=== PATIENT | female | born 1995 ===

== ENCOUNTER 2019-05-26 22:09 | Emergency (ER) | payer OTHER ==
[2019-05-27] MEDS ORDERED: IBUPROFEN 600 MG TAB PO ONE (01:07)
--- NOTE | 2019-05-27 01:07 | Emergency Department Report ---
Abscess Boil HPI - HPI Chief Complaint: Skin/Abscess/Foreign Body Stated Complaint: ABSCESS UNDER LEFT ARM Time Seen by Provider: 05/27/19 01:07 Duration: Today Location: Upper Extremity History: Yes Pain, Yes Previous History, No Purulent Drainage, No Numbness, No Foreign Body, No Insect Bite HPI: 23-year-old female presents to the emergency room for abscess under left arm x1 day. Patient states that she suffers from these abscesses usually under her arms groin and sometimes under her breasts. Patient has taken nothing for pain. Patient states that usually when the pain gets this bad and they usually burst. Denies any fever chills no nausea no vomiting. Home Medications: Previous Rx's Medication Instructions Recorded Last Taken Type Ibuprofen [Motrin 600 MG tab] 600 mg PO Q8H PRN #30 tablet 05/27/19 Unknown Rx cephALEXin [Keflex] 500 mg PO Q8HR 10 Days #30 cap 05/27/19 Unknown Rx Allergies/Adverse Reactions: Allergies Allergy/AdvReac Type Severity Reaction Status Date / Time No Known Allergies Allergy Unverified 05/26/19 23:04 ED Review of Systems ROS: Stated complaint: ABSCESS UNDER LEFT ARM Other details as noted in HPI ED Past Medical Hx - Past Medical History Previous Medical History?: No - Surgical History Past Surgical History?: Yes Additional Surgical History: D&C - Social History Smoking Status: Never Smoker Substance Use Type: Alcohol - Medications Home Medications: Home Medications Medication Instructions Recorded Confirmed Last Taken Type Ibuprofen [Motrin 600 MG tab] 600 mg PO Q8H PRN #30 tablet 05/27/19 Unknown Rx cephALEXin [Keflex] 500 mg PO Q8HR 10 Days #30 cap 05/27/19 Unknown Rx ED Abscess Boil Physical Exam - Exam General: Vital signs noted. No distress. Alert and acting appropriately. ED Course Vital Signs 05/26/19 22:36 Temperature 99.3 F Pulse Rate 106 H Respiratory 20 Rate Blood Pressure 118/75 O2 Sat by Pulse 99 Oximetry Critical care attestation.: If time is entered above; I have spent that time in minutes in the direct care of this critically ill patient, excluding procedure time. ED Medical Decision Making - Medical Decision Making 23-year-old female presents to the emergency room for abscess under left arm x1 day. Patient states that she suffers from these abscesses usually under her arms groin and sometimes under her breasts. Patient has taken nothing for pain. Patient states that usually when the pain gets this bad and they usually burst. Denies any fever chills no nausea no vomiting. Please complete antibiotics as prescribed. Take [id number] ibuprofen for pain management. Follow-up with a admissions assistant. ED Disposition Clinical Impression: Abscess of axilla, left Disposition: DC-01 TO HOME OR SELFCARE Is pt being admited?: No Does the pt Need Aspirin: No Condition: Stable Instructions: Abscess (ED) Additional Instructions: Please complete antibiotics as prescribed. Take [id number] ibuprofen for pain management. Follow-up with a admissions assistant. Prescriptions: cephALEXin [Keflex] 500 mg PO Q8HR 10 Days #30 cap Ibuprofen [Motrin 600 MG tab] 600 mg PO Q8H PRN #30 tablet PRN Reason: Pain , Severe (7-10) Referrals: LETY CAMARILLO MD [Staff Physician] - 3-5 Days
[2019-05-27 02:19] VITALS: BP 126/78
== END 2019-05-27 01:35 | disposition home or self-care (01) ==
LOC: ED 22:09
DX: L02.412 Cutaneous abscess of left axilla (principal)
CPT/HCPCS: 99282

== ENCOUNTER 2020-02-28 16:40 | Emergency (ER) | payer OTHER ==
[2020-02-28 16:59] VITALS: BP 117/78
--- NOTE | 2020-02-28 17:03 | Emergency Department Report ---
ED HPI - General Chief complaint: Vaginal Bleeding Stated complaint: POSSIBLE MISCARRIAGE Time Seen by Provider: 02/28/20 16:56 Source: patient Mode of arrival: Ambulatory Limitations: No Limitations - History of Present Illness Initial comments: 24-year-old female patient presents with complaints of lower abdominal pain and mild bleeding x yesterday. Patient states she is approximately 7 weeks and was sent here by her [employer]OYEE [employer]IST to rule out an ectopic or miscarriage. She denies any urinary symptoms, vaginal discharge/dyspareunia, nausea/vomiting/diarrhea, or fever/chills/sweats. She is A1. - Related Data Previous Rx's Medication Instructions Recorded Last Taken Type Ibuprofen [Motrin 600 MG tab] 600 mg PO Q8H PRN #30 tablet 05/27/19 Unknown Rx cephALEXin [Keflex] 500 mg PO Q8HR 10 Days #30 cap 05/27/19 Unknown Rx Amoxicillin/Potassium Clav 1 each PO BID 5 Days #10 tablet 02/28/20 Unknown Rx [Augmentin 875-125 Tablet] Allergies Allergy/AdvReac Type Severity Reaction Status Date / Time No Known Allergies Allergy Unverified 05/26/19 23:04 ED Review of Systems ROS: Stated complaint: POSSIBLE MISCARRIAGE Other details as noted in HPI Constitutional: denies: chills, diaphoresis, fever, malaise, weakness Respiratory: denies: cough Cardiovascular: denies: chest pain Gastrointestinal: abdominal pain. denies: nausea, vomiting, diarrhea Genitourinary: denies: urgency, dysuria, frequency, hematuria Musculoskeletal: denies: back pain Skin: denies: rash Neurological: denies: numbness, paresthesias Hematological/Lymphatic: denies: swollen glands ED Past Medical Hx - Past Medical History Previous Medical History?: No - Surgical History Past Surgical History?: Yes Additional Surgical History: D&C - Social History Smoking Status: Never Smoker Substance Use Type: Alcohol - Medications Home Medications: Home Medications Medication Instructions Recorded Confirmed Last Taken Type Ibuprofen [Motrin 600 MG tab] 600 mg PO Q8H PRN #30 tablet 05/27/19 Unknown Rx cephALEXin [Keflex] 500 mg PO Q8HR 10 Days #30 cap 05/27/19 Unknown Rx Amoxicillin/Potassium Clav 1 each PO BID 5 Days #10 tablet 02/28/20 Unknown Rx [Augmentin 875-125 Tablet] ED Physical Exam - General Limitations: No Limitations General appearance: alert, in no apparent distress - Head Head exam: Present: atraumatic, normocephalic - Eye Eye exam: Present: normal appearance. Absent: scleral icterus - Respiratory Respiratory exam: Present: normal lung sounds bilaterally. Absent: respiratory distress - Cardiovascular Cardiovascular Exam: Present: regular rate, normal rhythm - GI/Abdominal GI/Abdominal exam: Present: soft, normal bowel sounds. Absent: distended, tenderness, guarding, rebound, rigid - Extremities Exam Extremities exam: Present: full ROM - Neurological Exam Neurological exam: Present: alert, oriented X3, normal gait - Psychiatric Psychiatric exam: Present: normal affect, normal mood - Skin Skin exam: Present: warm, dry, intact, normal color. Absent: rash ED Course Vital Signs 02/28/20 16:58 Temperature 99.2 F Pulse Rate 103 H Respiratory 18 Rate Blood Pressure 117/78 [Right] O2 Sat by Pulse 99 Oximetry ED Medical Decision Making - Lab Data Result diagrams: 02/28/20 17:04 02/28/20 17:04 Lab Results 02/28/20 02/28/20 02/28/20 Range/Units 17:04 17:04 17:04 WBC 10.5 (4.5-11.0) K/mm3 RBC 4.85 (3.65-5.03) M/mm3 Hgb 11.9 (10.1-14.3) gm/dl Hct 37.1 (30.3-42.9) % MCV 77 L (79-97) fl MCH 25 L (28-32) pg MCHC 32 (30-34) % RDW 16.0 H (13.2-15.2) % Plt Count 297 (140-440) K/mm3 Lymph % (Auto) 32.5 (13.4-35.0) % [place] % (Auto) 5.1 (0.0-7.3) % Eos % (Auto) 0.4 (0.0-4.3) % Baso % (Auto) 0.2 (0.0-1.8) % Lymph # (Auto) 3.4 (1.2-5.4) K/mm3 [place] # (Auto) 0.5 (0.0-0.8) K/mm3 Eos # (Auto) 0.0 (0.0-0.4) K/mm3 Baso # (Auto) 0.0 (0.0-0.1) K/mm3 Seg Neutrophils % 61.8 (40.0-70.0) % Seg Neutrophils # 6.5 (1.8-7.7) K/mm3 Sodium 135 L (137-145) mmol/L Potassium 3.6 (3.6-5.0) mmol/L Chloride 99.8 (98-107) mmol/L Carbon Dioxide 24 (22-30) mmol/L Anion Gap 15 mmol/L BUN 7 (7-17) mg/dL Creatinine 0.6 (0.6-1.2) mg/dL Estimated GFR > 60 ml/min BUN/Creatinine Ratio 12 % Glucose 97 (65-100) mg/dL Calcium 9.1 (8.4-10.2) mg/dL Total Bilirubin 0.20 (0.1-1.2) mg/dL AST 12 (5-40) units/L ALT 10 (7-56) units/L Alkaline Phosphatase 83 (35-129) units/L Total Protein 8.6 H (6.3-8.2) g/dL Albumin 3.9 (3.9-5) g/dL Albumin/Globulin Ratio 0.8 % HCG, Quant 2626 H (0-4) mIU/mL Urine Color (Yellow) Urine Turbidity (Clear) Urine pH (5.0-7.0) Ur Specific [place] (1.003-1.030) Urine Protein (Negative) mg/dL Urine Glucose (UA) (Negative) mg/dL Urine Ketones (Negative) mg/dL Urine Blood (Negative) Urine Nitrite (Negative) Urine Bilirubin (Negative) Urine Urobilinogen (<2.0) mg/dL Ur Leukocyte Esterase (Negative) Urine WBC (Auto) (0.0-6.0) /HPF Urine RBC (Auto) (0.0-6.0) /HPF U Epithel Cells (Auto) (0-13.0) /HPF Urine Bacteria (Auto) (Negative) /HPF Urine Mucus /HPF Urine Yeast (Budding) /HPF Blood Type 02/28/20 02/28/20 Range/Units 17:04 Unknown WBC (4.5-11.0) K/mm3 RBC (3.65-5.03) M/mm3 Hgb (10.1-14.3) gm/dl Hct (30.3-42.9) % MCV (79-97) fl MCH (28-32) pg MCHC (30-34) % RDW (13.2-15.2) % Plt Count (140-440) K/mm3 Lymph % (Auto) (13.4-35.0) % [place] % (Auto) (0.0-7.3) % Eos % (Auto) (0.0-4.3) % Baso % (Auto) (0.0-1.8) % Lymph # (Auto) (1.2-5.4) K/mm3 [place] # (Auto) (0.0-0.8) K/mm3 Eos # (Auto) (0.0-0.4) K/mm3 Baso # (Auto) (0.0-0.1) K/mm3 Seg Neutrophils % (40.0-70.0) % Seg Neutrophils # (1.8-7.7) K/mm3 Sodium (137-145) mmol/L Potassium (3.6-5.0) mmol/L Chloride (98-107) mmol/L Carbon Dioxide (22-30) mmol/L Anion Gap mmol/L BUN (7-17) mg/dL Creatinine (0.6-1.2) mg/dL Estimated GFR ml/min BUN/Creatinine Ratio % Glucose (65-100) mg/dL Calcium (8.4-10.2) mg/dL Total Bilirubin (0.1-1.2) mg/dL AST (5-40) units/L ALT (7-56) units/L Alkaline Phosphatase (35-129) units/L Total Protein (6.3-8.2) g/dL Albumin (3.9-5) g/dL Albumin/Globulin Ratio % HCG, Quant (0-4) mIU/mL Urine Color Yellow (Yellow) Urine Turbidity Slightly-cloudy (Clear) Urine pH 6.0 (5.0-7.0) Ur Specific [place] 1.021 (1.003-1.030) Urine Protein 30 mg/dl (Negative) mg/dL Urine Glucose (UA) Neg (Negative) mg/dL Urine Ketones Neg (Negative) mg/dL Urine Blood Lg (Negative) Urine Nitrite Neg (Negative) Urine Bilirubin Neg (Negative) Urine Urobilinogen < 2.0 (<2.0) mg/dL Ur Leukocyte Esterase Mod (Negative) Urine WBC (Auto) 25.0 H (0.0-6.0) /HPF Urine RBC (Auto) 51.0 (0.0-6.0) /HPF U Epithel Cells (Auto) 23.0 H (0-13.0) /HPF Urine Bacteria (Auto) 2+ (Negative) /HPF Urine Mucus 3+ /HPF Urine Yeast (Budding) 1+ /HPF Blood Type A POSITIVE - Medical Decision Making 24-year-old female patient presents with complaints of lower abdominal pain and mild bleeding x yesterday. Patient states she is approximately 7 weeks and was sent here by her EMPLOYEE TRAINING SPECIALIST to rule out an ectopic or miscarriage. She denies any urinary symptoms, vaginal discharge/dyspareunia, nausea/vomiting/diarrhea, or fever/chills/sweats. She is A1. CBC and CMP are without acute findings. No abdominal tenderness on exam. UA shows UTI. Urine culture sent. Will write for Augmentin. OB ultrasound pending. Critical care attestation.: If time is entered above; I have spent that time in minutes in the direct care of this critically ill patient, excluding procedure time. ED Disposition Clinical Impression: Vaginal bleeding during , UTI in Disposition: DC- TO HOME OR SELFCARE Is pt being admited?: No Condition: Stable Instructions: and Urinary Tract Infection Prescriptions: Amoxicillin/Potassium Clav [Augmentin 875-125 Tablet] 1 each PO BID 5 Days #10 tablet Referrals: [facility] [Provider Group] - 3-5 Days
[2020-02-28 17:27] LABS: Basophils % (Auto) 0.2 % (0.0-1.8); Eosinophils % (Auto) 0.4 % (0.0-4.3); Hematocrit 37.1 % (30.3-42.9); Hemoglobin 11.9 gm/dl (10.1-14.3); Lymphocytes # (Auto) 3.4 K/mm3 (1.2-5.4); Lymphocytes % (Auto) 32.5 % (13.4-35.0); Mean Corpuscular HGB Conc 32 % (30-34); Mean Corpuscular Volume 77 fl (79-97); Monocytes # (Auto) 0.5 K/mm3 (0.0-0.8); Monocytes % (Auto) 5.1 % (0.0-7.3); Platelet Count 297 K/mm3 (140-440); Red Blood Count 4.85 M/mm3 (3.65-5.03)
[2020-02-28 17:43] LABS: Bilirubin,Urine NEG (Negative); Color,Urine Yellow (Yellow)
[2020-02-28 17:44] LABS: Bacteria,Urine 2+ /HPF (Negative); Blood,Urine LG (Negative); Mucus,Urine 3+ /HPF; Urobilinogen,Urine < 2.0 mg/dL (<2.0)
[2020-02-28 17:45] LABS: Alanine Aminotransferase 10 units/L (7-56); Albumin 3.9 g/dL (3.9-5); Blood Urea Nitrogen 7 mg/dL (7-17); Calcium 9.1 mg/dL (8.4-10.2); Hemolysis Index 3
[2020-02-28 17:59] LABS: BUN/Creatinine Ratio 12
--- NOTE | 2020-02-28 22:30 | Ultrasound Report ---
ULTRASOUND OBSTETRIC INDICATION / CLINICAL INFORMATION: vaginal bleeding and pain. Clinical Gestational Age (GA): 7.3 weeks.days TECHNIQUE: Transabdominal and Transvaginal. COMPARISON: None available. FINDINGS: GESTATIONAL SAC: Not visualized. YOLK SAC: Not visualized. EMBRYO/FETUS: Not visualized. UTERUS: The uterus measures 7.7 x 3.8 x 3.5 cm. The endometrial stripe measures 10 mm in thickness. ADNEXA: The ovaries were not visualized on this examination. FREE FLUID: None. ADDITIONAL FINDINGS: None. IMPRESSION: 1. No intrauterine gestation is identified on this examination. Signer Name: Andrew Muro MD Signed: 02/28/2020 10:25 PM Workstation Name: [id number]
== END 2020-02-29 00:25 | disposition home or self-care (01) ==
LOC: ED 16:40
DX: O20.8 Other hemorrhage in early pregnancy (principal); O23.41 Unspecified infection of urinary tract in pregnancy, first trimester; Z3A.01 Less than 8 weeks gestation of pregnancy; Z79.899 Other long term (current) drug therapy
CPT/HCPCS: 36415; 76801; 76817; 80053; 81001; 84702; 85025; 86900; 86901; 87086